=== PATIENT | male | born 1990 | race American Indian/Alaskan Native ===

== ENCOUNTER 2021-08-12 23:01 | Emergency (ER) | payer SELFPAY ==
[2021-08-12 23:26] VITALS: BP 132/73
--- NOTE | 2021-08-13 13:34 | Electrocardiograph Report ---
[facility] Test Date: 2021-08-12 Test Time: 23:18:06 Pat Name: MINDI CORTES Department: Room: Gender: M [employer]: : 1990 Requested By: EMELI ESPOSITO Order Number: [id number] Reading MD: Ishmael Nye Measurements Intervals [place] Rate: 103 P: 48 MD: 115 QRS: 80 QRSD: 98 T: 40 QT: 311 QTc: 407 Interpretive Statements Sinus tachycardia Incomplete RBBB. Probable left atrial enlargement No previous ECG available for comparison Electronically Signed On 08-13-2021 13:33:35 EDT by Ishmael Nye
== END 2021-08-13 00:02 | disposition left against medical advice (07) ==
LOC: ED 23:01
DX: R07.89 Other chest pain (principal); Z53.21 Procedure and treatment not carried out due to patient leaving prior to being seen by health care provider
CPT/HCPCS: 93005